=== PATIENT | female | born 1990 | race Two or more races ===

== ENCOUNTER 2019-01-05 11:37 | Emergency (ER) | payer OTHER ==
[2019-01-05 11:42] VITALS: BP 124/72
[2019-01-05] MEDS ORDERED: DIPH/PERTUSS(ACELL)/TETANUS VAC/PF 0.5 ML SYR (>=10YO) IM ONE (12:16)
--- NOTE | 2019-01-05 12:20 | ER Document Report ---
HPI - HPI Time Seen by Provider: 01/05/19 12:13 Notes: Patient is a 28-year-old female no significant past medical history who presents complaining of dog bite by a friend's dog 1 week ago to the right posterior hand. Patient states that she does not have any significant pain or discomfort, but the wound is still present and wanted it evaluated. Unknown last tetanus. She has not noticed any significant redness or purulent discharge. She is able to move her fingers without difficulties. Denies drug allergies. No history of IV drug abuse. Denies any headache, fever, neck pain, URI, sore throat, chest pain, palpitations, syncope, cough, shortness of breath, wheeze, dyspnea, abdominal pain, nausea/vomiting/diarrhea, urinary retention, dysuria, hematuria, loss of control of bowel or bladder, numbness/tingling, muscle paralysis, or rash. - ROS Systems Reviewed and Negative: Yes All other systems reviewed and negative Past Medical History - Social History Smoking Status: Never Smoker Family History: Reviewed & Not Pertinent Vertical Provider Document - CONSTITUTIONAL Agree With Documented VS: Yes Notes: PHYSICAL EXAMINATION: GENERAL: Well-appearing, well-nourished and in no acute distress. HEAD: Atraumatic, normocephalic. NECK: Normal range of motion, supple without lymphadenopathy. No midline tenderness. LUNGS: Breath sounds clear to auscultation bilaterally and equal. No wheezes rales or rhonchi. HEART: Regular rate and rhythm without murmurs, rubs, gallops. Musculoskeletal: Rt hand/wrist: + small 0.5cm puncture wound noted (old) to the rt posterior lateral hand. No erythema, warmth, ecchymosis, deformity, or swelling noted. N/V intact distal. FROM to passive/active at the wrist. Strength 5+/5. No scaphoid tenderness. No other bony tenderness. Gamekeeper negative. Extremities: No cyanosis, clubbing, or edema b/l. Peripheral pulses 2+. Capillary refill less than 3 seconds. NEUROLOGICAL: Normal speech, normal gait. Normal sensory, motor exams otherwise unremarkable PSYCH: Normal mood, normal affect. SKIN: see above. No rash Course - Re-evaluation Re-evalutation: 01/05/19 12:18 Patient is an afebrile, well-hydrated, 28-year-old female who presents to the ED with dog bite to the right hand that is currently 1 week old does not warrant any type of suture repair. Vitals are acceptable without any significant tachycardia, tachypnea, or hypoxia. PE is otherwise unremarkable for any neurovascular compromise, obvious tendon/ligament rupture, obvious fracture/dislocation, septic joint. No bony tenderness. Wound was thoroughly irrigated and cleansed. Wound dressing was applied. Tetanus was updated today. Patient is nontoxic-appearing. No other labs or imaging warranted at this time based on H&P. I will send her home with prescription for Augmentin. Reviewed the risk and benefit of rabies which she declined at this time. Conservative measures otherwise for symptoms. Recheck with your PCM in 3-5 days. Consider consult orthopedics. Return to the ED with any worsening/concerning symptoms otherwise as reviewed in discharge. Patient is in agreement. - Vital Signs Vital signs: Temp Pulse Resp BP Pulse Ox 98.3 F 78 14 124/72 99 01/05/19 11:41 01/05/19 11:41 01/05/19 11:41 01/05/19 11:41 01/05/19 11:41 Discharge - Discharge Clinical Impression: Dog bite of right hand Qualifiers: Encounter type: initial encounter Qualified Code(s): S61.451A - Open bite of right hand, initial encounter; W54.0XXA - Bitten by dog, initial encounter Condition: Stable Disposition: HOME, SELF-CARE Instructions: Animal Bites ([facility]), Augmentin ([facility]) Additional Instructions: Keep the skin clean Wash with soap and water Tylenol/ibuprofen if needed Triple antibiotic ointment daily Take medication as directed Monitor for any worsening symptoms Recheck with your PCM in 3-5 days Return to the ED with any worsening symptoms and/or development of fever, heada karla, chest pain, palpitations, syncope, shortness of breath, trouble breathing, abdominal pain, n/v/d, abscess, purulent discharge, red streaks, worsening swelling, or other worsening symptoms that are concerning to you. Prescriptions: Amox Tr/Potassium Clavulanate [Augmentin 875-125 Tablet] 1 tab PO BID 10 Days #20 tablet Referrals: [facility] ([facility]) [Provider Group] - Follow up as needed
== END 2019-01-05 12:47 | disposition home or self-care (01) ==
LOC: ER 11:37
DX: S61.451A Open bite of right hand, initial encounter (principal); W54.0XXA Bitten by dog, initial encounter
CPT/HCPCS: 90471; 90715; 99283